=== PATIENT | female | born 2000 | race Two or more races ===

== ENCOUNTER 2024-02-13 00:53 | Inpatient (IN) | payer BC, OTHER ==
[~2024-02-13] VITALS: Ht 165.1 cm; Wt 85.6 kg
[2024-02-13] MEDS: IOHEXOL 300 MG/ML 100ML BOTTLE IJ ONE ×2 (01:17→16:31)
[2024-02-13] MEDS: ONDANSETRON HCL 4 MG/2 ML VIAL IV ONE ×3 (01:17→17:52)
[2024-02-13] MEDS: MORPHINE SULFATE 4 MG/ML SYR/VIAL IV ONE ×2 (01:17→01:28)
[2024-02-13] MEDS: SODIUM CHLORIDE 0.9% 1,000 ML IV ONE ×2 (01:17→04:46)
[2024-02-13 01:25] LABS: Basophils # (auto) 0.1 10 ^3/uL (0-0.2); Basophils % (auto) 0.4 % (0.0-2.0); Eosinophils # (auto) 0.1 10 ^3/uL (0-0.8); Eosinophils % (auto) 0.5 % (0.0-7.0); Hemoglobin 13.2 g/dL (12.2-16.2); Lymphocytes # (auto) 3.1 10 ^3/uL (0.4-5.4); Lymphocytes % (auto) 18.2 % (10.0-50.0); Mean Corpuscular Hgb Conc. 33.7 g/dL (32.0-36.0); Mean Corpuscular Volume 82.9 fL (80.0-100.0); Monocytes # (auto) 1.1 10 ^3/uL (0-1.3); Monocytes % (auto) 6.3 % (0.0-12.0); Neutrophils # (auto) 12.7 10 ^3/uL (1.6-8.6); Neutrophils % (auto) 74.6 % (37.0-80.0); Nucleated Red Blood Cells % 0.1 %; Platelet Count (auto) 288 10^3/uL (140-450); Red Blood Cells 4.71 10^6/uL (4.0-5.20); Red Cell Distribution Width 13.9 % (11.8-14.3)
[2024-02-13 01:39] LABS: Alanine Aminotransferase 14 U/L (7-40); Albumin 4.7 g/dL (3.2-4.8); Alkaline Phosphatase 93 U/L (46-116); Anion Gap 13 (5-15); Aspartate Aminotransferase 9 U/L (13-40); BUN/Creatinine Ratio 9.4 (10.0-20.0); Blood Urea Nitrogen 8 mg/dL (9-23); Calcium 9.8 mg/dL (8.7-10.4); Carbon Dioxide 20 mmol/L (20-31); Chloride 106 mmol/L (98-107); Glucose 130 mg/dL (74-106); Lipase 38 U/L (12-53); Potassium 3.6 mmol/L (3.5-5.1); Sodium 139 mmol/L (136-145)
[2024-02-13 01:40] LABS: Bilirubin, Total 0.4 mg/dL (0.2-1.0); Total Protein 7.5 g/dL (5.7-8.2)
[2024-02-13 01:49] LABS: Lactic Acid w/Reflex 2.9 mmol/L (0.4-2.0)
[2024-02-13] MEDS: KETAMINE 50mg/ML 10ml Vial (500mg/10ml) IV ONE (02:27)
[2024-02-13] MEDS: KETOROLAC TROMETH 30 MG/ML 1ML VIAL IV ONE (04:46)
[2024-02-13] MEDS: cefTRIAXone 1GM/50ML D5W 50 ML IV ONE (04:46)
[2024-02-13] MEDS: TAMSULOSIN HYDROCHLORIDE 0.4 MG CAP PO ONE (04:46)
[2024-02-13] MEDS ORDERED: MORPHINE SULFATE INJ 2 MG/ml SYRG IV PRN (07:00)
[2024-02-13] MEDS ORDERED: ACETAMINOPHEN 325 MG TAB PO PRN (07:00)
[2024-02-13] MEDS ORDERED: TEMAZEPAM 15 MG CAP PO PRN (07:00)
[2024-02-13] MEDS ORDERED: HYDROcodone-ACET 5/325MG TAB PO PRN (07:00)
[2024-02-13 07:59] LABS: Urine Bacteria FEW /hpf (None Seen); Urine Blood 1+ /uL (Negative); Urine Clarity Clear (Clear); Urine Color Light-Yellow (Yellow); Urine Mucus FEW (None Seen); Urine Protein, UAD TRACE (Negative); Urine Urobilinogen Normal (Negative); Urine WBC 3 /hpf (0 - 5)
[2024-02-13 08:09] VITALS: PULSE 91; RESP 16; O2SAT 92
[2024-02-13] MEDS: ONDANSETRON HCL 4 MG/2 ML VIAL IV PRN (11:11)
[2024-02-13] MEDS: ACETAMINOPHEN 325 MG TAB PO SCH (13:24)
[2024-02-13 13:38] VITALS: PULSE 95; RESP 17; O2SAT 99
[2024-02-13] MEDS ORDERED: IBUP-1455 PO (14:01)
[2024-02-13] MEDS: SODIUM CHLORIDE 0.9% 1,000 ML IV SCH (15:19)
[2024-02-13] MEDS: SUCCINYLCHOLINE CHLORIDE 20 MG/ML 10ML VIAL IV ONE (16:07)
[2024-02-13] MEDS ORDERED: fentaNYL CITRATE 100 MCG/2 ML VL ONE (16:09)
[2024-02-13] MEDS ORDERED: PROPOFOL 10 MG/ML 20 ML IV ONE (16:09)
[2024-02-13] MEDS: levoFLOXacin 500MG 100 ML IV ONE (16:10)
[2024-02-13] MEDS: MORPHINE SULFATE 4 MG/ML SYR/VIAL IV PRN (16:23)
[2024-02-13] MEDS ORDERED: DexAMETHasone SOD PHOS 10MG/1ML VIAL INJ ONE (16:45)
[2024-02-13] MEDS ORDERED: ONDANSETRON HCL 4 MG/2 ML VIAL ONE (16:45)
[2024-02-13 17:18] VITALS: PULSE 109; RESP 12
[2024-02-13] MEDS ORDERED: HYDROmorphone HCL 2 MG/ML VL/or syr IV PRN (17:30)
[2024-02-13] MEDS ORDERED: MEPERIDINE HCL (25 MG/ML) 1ML VIAL IV PRN (17:30)
[2024-02-13] MEDS: TAMSULOSIN HYDROCHLORIDE 0.4 MG CAP PO SCH (19:28)
[2024-02-13 20:00] VITALS: PULSE 97; RESP 20; O2SAT 95
[2024-02-13 21:00] VITALS: BP 110/75; PULSE 97; RESP 20; TEMP 97.9; O2SAT 95
[2024-02-14] VITALS (8 sets, daily range): BP systolic 93–128; BP diastolic 53–71; PULSE 85–104; RESP 17–22; TEMP 97.8–98.9; O2SAT 95–97
[2024-02-14 07:41] LABS: Chloride 108 mmol/L (98-107); Potassium 4.1 mmol/L (3.5-5.1); Sodium 140 mmol/L (136-145)
[2024-02-14 07:42] LABS: Anion Gap 9 (5-15); Calcium 9.2 mg/dL (8.7-10.4); Carbon Dioxide 23 mmol/L (20-31)
[2024-02-14 07:47] LABS: BUN/Creatinine Ratio 8.1 (10.0-20.0); Blood Urea Nitrogen 5 mg/dL (9-23); Glucose 119 mg/dL (74-106)
[2024-02-14 07:51] LABS: Basophils # (auto) 0 10 ^3/uL (0-0.2); Eosinophils # (auto) 0 10 ^3/uL (0-0.8); Hematocrit 38.7 % (36.0-46.0); Lymphocytes # (auto) 1.2 10 ^3/uL (0.4-5.4); Lymphocytes % (auto) 9.1 % (10.0-50.0); Mean Corpuscular Hgb Conc. 33.5 g/dL (32.0-36.0); Mean Corpuscular Volume 83.5 fL (80.0-100.0); Monocytes # (auto) 0.3 10 ^3/uL (0-1.3); Monocytes % (auto) 2.1 % (0.0-12.0); Neutrophils # (auto) 11.3 10 ^3/uL (1.6-8.6); Neutrophils % (auto) 88.8 % (37.0-80.0); Platelet Count (auto) 278 10^3/uL (140-450); Red Blood Cells 4.63 10^6/uL (4.0-5.20); Red Cell Distribution Width 14.1 % (11.8-14.3); White Blood Cell 12.7 10^3/uL (4.4-10.8)
[2024-02-14] MEDS: cefTRIAXone 1GM/50ML D5W 50 ML IV SCH (08:06)
[2024-02-15] VITALS (7 sets, daily range): BP systolic 108–128; BP diastolic 64–75; PULSE 56–89; RESP 16–20; TEMP 97.6–98.9; O2SAT 94–97
[2024-02-15 07:06] LABS: Basophils # (auto) 0 10 ^3/uL (0-0.2); Basophils % (auto) 0.2 % (0.0-2.0); Eosinophils # (auto) 0 10 ^3/uL (0-0.8); Eosinophils % (auto) 0.1 % (0.0-7.0); Hematocrit 34.1 % (36.0-46.0); Hemoglobin 11.5 g/dL (12.2-16.2); Lymphocytes % (auto) 32.5 % (10.0-50.0); Mean Corpuscular Hemoglobin 28.5 pg (28.0-32.0); Mean Corpuscular Hgb Conc. 33.6 g/dL (32.0-36.0); Mean Corpuscular Volume 84.8 fL (80.0-100.0); Monocytes # (auto) 0.7 10 ^3/uL (0-1.3); Monocytes % (auto) 5.8 % (0.0-12.0); Neutrophils # (auto) 7.5 10 ^3/uL (1.6-8.6); Neutrophils % (auto) 61.4 % (37.0-80.0); Platelet Count (auto) 246 10^3/uL (140-450); Red Blood Cells 4.02 10^6/uL (4.0-5.20); Red Cell Distribution Width 14.2 % (11.8-14.3); White Blood Cell 12.2 10^3/uL (4.4-10.8)
[2024-02-15 07:11] LABS: Chloride 111 mmol/L (98-107); Potassium 4.1 mmol/L (3.5-5.1); Sodium 142 mmol/L (136-145)
[2024-02-15 07:12] LABS: Anion Gap 6 (5-15); Calcium 8.8 mg/dL (8.7-10.4); Carbon Dioxide 25 mmol/L (20-31)
[2024-02-15 07:17] LABS: Blood Urea Nitrogen 9 mg/dL (9-23); Glucose 99 mg/dL (74-106)
[2024-02-15] MEDS ORDERED: traMADol HCL 50 MG TAB PO PRN (16:00)
[2024-02-16 01:00] VITALS: BP 94/53; PULSE 77; RESP 17; TEMP 98.3; O2SAT 96
[2024-02-16 05:00] VITALS: BP 105/52; PULSE 75; RESP 15; TEMP 98.6; O2SAT 98
[2024-02-16] MEDS: traMADol HCL 50 MG TAB PO ONE (08:28)
[2024-02-16 09:05] VITALS: BP 119/73; PULSE 99; RESP 17; TEMP 98.6; O2SAT 96
[2024-02-16 12:45] VITALS: BP 119/75; PULSE 65; RESP 19; TEMP 98.1; O2SAT 96
[2024-02-16] MEDS ORDERED: TRAM-626 PO (16:43)
[2024-02-16] MEDS ORDERED: METO5TAB67 PO (16:46)
[2024-02-16] MEDS ORDERED: TAMS-35 PO (16:46)
[2024-02-16] MEDS ORDERED: IBUP-1455 PO (16:46)
[2024-02-16] MEDS ORDERED: ACET-1882 PO (16:46)
[2024-02-16 16:58] VITALS: BP 130/78; PULSE 68; RESP 18; TEMP 97.9; O2SAT 99
[2024-02-16] MEDS: oxyCODONE HCL 5MG TAB PO ONE (17:54)
== END 2024-02-16 20:00 | disposition home or self-care (01) | DRG 661 ==
LOC: ER 00:53 → OVERFLOW 07:02 → EAST 13:38
PROVIDERS: ADMIT Nurse Practitioner; ATTEND Student in an Organized Health Care Education/Training Program
PROC: 0T768DZ Dilation of Right Ureter with Intraluminal Device, Via Natural or Artificial Opening Endoscopic (ICD-10-PCS; 2024-02-13)
PROC: 0TC68ZZ Extirpation of Matter from Right Ureter, Via Natural or Artificial Opening Endoscopic (ICD-10-PCS; 2024-02-13)
PROC: BT1D1ZZ Fluoroscopy of Right Kidney, Ureter and Bladder using Low Osmolar Contrast (ICD-10-PCS; principal; 2024-02-13 16:30)
DX: N13.2 Hydronephrosis with renal and ureteral calculous obstruction (principal); D72.829 Elevated white blood cell count, unspecified; D35.01 Benign neoplasm of right adrenal gland; Z79.899 Other long term (current) drug therapy
CPT/HCPCS: 36415; 74018; 74177; 76000; 80048; 80053; 81001; 83605; 83690; 84702; 85025; G0378; J0330; J1100; J1885; J1956; J2405; J2704